=== PATIENT | male | born 1980 | race Caucasian/White ===

== ENCOUNTER 2017-11-22 03:56 | Emergency (ER) | payer OTHER ==
[~2017-11-22] VITALS: Ht 182.9 cm; Wt 120.0 kg
[~2017-11-22 03:56] MED LIST: ALPR1 PO; B COTAB3 PO; CLA; FLAXOIL2; LISI10 PO; LORTA5 PO; SERT100 PO; TAB-TAB PO; VITA100017 PO
[2017-11-22 04:05] VITALS: BP 129/71; PULSE 102; RESP 14; TEMP 98.4; O2SAT 96
[2017-11-22] MEDS ORDERED: TETANUS/DIPHTHERIA TOXOID ADULT 0.5 ML VIAL IM ONE (04:15)
[2017-11-22] MEDS ORDERED: ONDANSETRON HCL 4 MG/2 ML VIAL IV PUSH ONE (04:15)
[2017-11-22] MEDS ORDERED: SODIUM CHLOR 0.9% 1000 ML INJ 1,000 ML IV ONE (04:15)
[2017-11-22] MEDS ORDERED: LISI10TA3 PO (04:21)
--- NOTE | 2017-11-22 04:25 | PD ---
HPI Chief Complaint: Alcohol/Drug Intoxication Time Seen by Provider: 04:03 Travel History International Travel<30 days: No Contact w/Intl Traveler<30days: No Traveled to known affect area: No History of Present Illness HPI The patient is a 37-year-old male who presents to the emergency department via EMS for alcohol intoxication and head injury. According to EMS the patient was out with friends earlier tonight, drinking alcohol, when he apparently fell backwards striking his head. EMS states that were bystanders on scene and stated the patient did not lose consciousness. However, EMS states in route to the hospital the patient started vomiting. They noted his initial GCS was 14. Upon arrival the patient was actively vomiting, was somewhat lethargic but arousable. Patient does complain of mild headache and nausea with vomiting, denies any chest pain, neck pain, shortness breath, or abdominal pain. Symptoms are moderate. PFSH Past Medical History Arthritis: No Asthma: No Autoimmune Disease: No Blood Disorders: No Anxiety: No Depression: No Heart Rhythm Problems: No Cancer: No Cardiovascular Problems: No High Cholesterol: No Chemotherapy: No Chest Pain: No Congestive Heart Failure: No COPD: No Cerebrovascular Accident: No Diabetes: No Diminished Hearing: No Endocrine: No Gastrointestinal Disorders: Yes GERD: No Glaucoma: No Genitourinary: Yes Headaches: No Hepatitis: No Hiatal Hernia: No Hypertension: Yes Immune Disorder: No Kidney Stones: Yes (possible kidney stones while in highschool) Musculoskeletal: Yes (malignant hyperthermia) Neurologic: No Psychiatric: No Reproductive: No Respiratory: No Migraines: No Myocardial Infarction: No Radiation Therapy: No Renal Failure: No Seizures: No Sickle Cell Disease: No Sleep Apnea: No Thyroid Disease: No Ulcer: No Tetanus Vaccination: Unknown Past Surgical History Abdominal Surgery: No AICD: No Appendectomy: No Arteriovenous Shunt: No Cardiac Surgery: No Cholecystectomy: No Ear Surgery: No Endocrine Surgery: No Eye Surgery: No Genitourinary Surgery: Yes (cystoscopy while in highschool) Insulin Pump: No Joint Replacement: No Neurologic Surgery: No Oral Surgery: No Pacemaker: No Thoracic Surgery: No Other Surgery: Yes (MUSCLE BIOPSY ) Social History Alcohol Use: Yes (12 pack a week) Tobacco Use: No Substance Use: No Allergies-Medications (Allergen,Severity, Reaction): Coded Allergies: Sulfa (Sulfonamide Antibiotics) (Unverified Allergy, Severe, UNKNOWN, 11/22) cefaclor (Unverified Allergy, Severe, UNKNOWN, 11/22/17) desflurane (Unverified Allergy, Severe, 11/22/17) FATHER HAD AN EPISODE OF MALIGNANT HYPERTHERMIA, PT TEST INCONCLUSIVE etomidate (Unverified Allergy, Severe, 11/22/17) FATHER HAD AN EPISODE OF MALIGNANT HYPERTHERMIA, PT TEST INCONCLUSIVE isoflurane (Unverified Allergy, Severe, 11/22/17) FATHER HAD AN EPISODE OF MALIGNANT HYPERTHERMIA, PT TEST INCONCLUSIVE ketamine (Unverified Allergy, Severe, 11/22/17) FATHER HAD AN EPISODE OF MALIGNANT HYPERTHERMIA, PT TEST INCONCLUSIVE metaxalone (Unverified Allergy, Severe, UNKNOWN, 11/22/17) methohexital (Unverified Allergy, Severe, 11/22/17) FATHER HAD AN EPISODE OF MALIGNANT HYPERTHERMIA, PT TEST INCONCLUSIVE nitrous oxide (Unverified Allergy, Severe, 11/22/17) FATHER HAD AN EPISODE OF MALIGNANT HYPERTHERMIA, PT TEST INCONCLUSIVE propofol (Unverified Allergy, Severe, 11/22/17) FATHER HAD AN EPISODE OF MALIGNANT HYPERTHERMIA, PT TEST INCONCLUSIVE sevoflurane (Unverified Allergy, Severe, 11/22/17) FATHER HAD AN EPISODE OF MALIGNANT HYPERTHERMIA, PT TEST INCONCLUSIVE shellfish derived (Unverified Allergy, Severe, THROAT CLOSES, 11/22/17) succinylcholine (Unverified Allergy, Severe, MALIGNANT HYPERTHERMIA, ) sufentanil (Unverified Allergy, Severe, 11/22/17) FATHER HAD AN EPISODE OF MALIGNANT HYPERTHERMIA, PT TEST INCONCLUSIVE Reported Meds & Prescriptions Reported Meds & Active Scripts Active Reported Lisinopril 10 Mg Tab Unknown Dose PO DAILY Review of Systems Except as stated in HPI: all other systems reviewed are Neg HENT: Positive: Headaches, No: Neck Pain Cardiovascular: No: Chest Pain or Discomfort Respiratory: No: Shortness of Breath Gastrointestinal: Positive: Nausea, Vomiting, No: Abdominal Pain Musculoskeletal: No: Weakness Neurologic: No: Weakness Psychiatric: Positive: Substance Abuse (alcohol use tonight) Physical Exam Narrative GENERAL: 37-year-old male who appears his stated age and is initially evaluated with cervical collar in place. SKIN: 3 cm transverse laceration to the occipital area with skin avulsion noted. HEAD: 3 cm transverse laceration to the occipital area with skin avulsion. EYES: Pupils equal and round. 3 mm bilateral and reactive. ENT: No nasal bleeding or discharge. Breath smells of alcohol. NECK: Trachea midline. No JVD. Cervical collar in place. CARDIOVASCULAR: Regular rate and rhythm. No murmur appreciated. RESPIRATORY: No accessory muscle use. Clear to auscultation. Breath sounds equal bilaterally. GASTROINTESTINAL: Abdomen soft, non-tender, nondistended. No rebound tenderness. MUSCULOSKELETAL: No obvious deformities. No clubbing. No cyanosis. No edema. Back: No tenderness over the thoracic or lumbar vertebrae. NEUROLOGICAL: Awake, lethargic but arousable. Moves all 4 extremities. Oriented to person. PSYCHIATRIC: Appears intoxicated. Data Data Last Documented VS Vital Signs Date Time Temp Pulse Resp B/P (MAP) Pulse Ox O2 Delivery O2 Flow Rate FiO2 11/22/17 04:05 98.4 102 14 129/71 (90) [address] Brain W/O Iv Contrast(Rout) (11/22/17 ) Ct Cerv Spine W/O Contrast (11/22/17 ) Basic Metabolic Panel (Bmp) (11/22/17 04:03) Alcohol (Ethanol) (11/22/17 04:03) Tetanus/Diphtheria Tox Adult (Tetanus/Di (11/22/17 04:15) Ondansetron Inj (Zofran Inj) (11/22/17 04:15) Sodium Chlor 0.9% 1000 Ml Inj (Ns 1000 M (11/22/17 04:15) Labs Laboratory Tests Test 11/22/17 04:10 Blood Urea Nitrogen 11 MG/DL Creatinine 1.02 MG/DL Random Glucose 131 MG/DL Calcium Level 8.4 MG/DL Sodium Level 139 MEQ/L Potassium Level 3.7 MEQ/L Chloride Level 104 MEQ/L Carbon Dioxide Level 24.1 MEQ/L Anion Gap 11 MEQ/L Estimat Glomerular Filtration Rate 83 ML/MIN Ethyl Alcohol Level 275 MG/DL [facility] Medical Decision Making Medical Screen Exam Complete: Yes Emergency Medical Condition: Yes Medical Record Reviewed: Yes Interpretation(s) CT of the brain reveals negative noncontrast head CT CT of the cervical spine is negative Laboratory Tests Test 11/22/17 04:10 Blood Urea Nitrogen 11 MG/DL Creatinine 1.02 MG/DL Random Glucose 131 MG/DL Calcium Level 8.4 MG/DL Sodium Level 139 MEQ/L Potassium Level 3.7 MEQ/L Chloride Level 104 MEQ/L Carbon Dioxide Level 24.1 MEQ/L Anion Gap 11 MEQ/L Estimat Glomerular Filtration Rate 83 ML/MIN Ethyl Alcohol Level 275 MG/DL Differential Diagnosis Differential diagnosis includes closed head injury, intracranial hemorrhage, subarachnoid hemorrhage, skull fracture, concussion, alcoholic gastritis, alcohol intoxication, hyponatremia, laceration, contusion, abrasion. Narrative Course IV was established, labs are drawn and sent, and the patient was placed on cardiac telemetry monitoring and continuous pulse oximetry monitoring. CT of the brain and cervical spine were obtained. The patient was administered Zofran and 1 L normal saline bolus. Tetanus shot was updated. Sodium level is normal 139. Alcohol level is elevated at 275. CT the brain and cervical spine are negative. The patient's laceration was repaired by the mid-level provider, please refer to the procedure note. The patient will be monitored in the emergency department until he is awake, alert, and able to ambulate. He will then be discharged home with a safe ride and disposition home. Diagnosis Primary Impression: Closed head injury Qualified Codes: S09.90XA - Unspecified injury of head, initial encounter Additional Impressions: Alcohol intoxication Qualified Codes: F10.929 - Alcohol use, unspecified with intoxication, unspecified Scalp laceration Qualified Codes: S01.01XA - Laceration without foreign body of scalp, initial encounter Patient Instructions: General Instructions Additional Instructions: Wound care instructions. [place] removed in 7 days. Polysporin twice a day. Decrease alcohol intake. Please provide the patient a copy of his blood work and CT results at discharge. Return if symptoms worsen or progress. Med/Other Pt SpecificInfo: No Change to Meds Disposition: 01 DISCHARGE HOME Condition: Stable Everardo Quintero MD Nov 22, 2017 04:25
--- NOTE | 2017-11-22 04:45 | RADRPT ---
EXAM DATE/TIME: 11/22/2017 04:30 [facility] COMPARISON: No previous studies available for comparison. INDICATIONS : Trauma; fall. RADIATION DOSE: 49.07 CTDIvol (mGy) MEDICAL HISTORY : None SURGICAL HISTORY : None. ENCOUNTER: Initial ACUITY: 1 day PAIN SCALE: Non-responsive LOCATION: cranial TECHNIQUE: Multiple contiguous axial images were obtained of the head. Using automated exposure control and adj ustment of the mA and/or kV according to patient size, radiation dose was kept as low as reasonably a chievable to obtain optimal diagnostic quality images. DICOM format image data is available electro nically for review and comparison. FINDINGS: CEREBRUM: The ventricles are normal for age. No evidence of midline shift, mass lesion, hemorrhage or acute in farction. No extra-axial fluid collections are seen. POSTERIOR FOSSA: The cerebellum and brainstem are intact. The 4th ventricle is midline. The cerebellopontine angle i s unremarkable. EXTRACRANIAL: The visualized portion of the orbits is intact. Mucosal thickening is noted in the ethmoidal air cell s. SKULL: The calvaria is intact. No evidence of skull fracture. CONCLUSION: Negative noncontrast head CT. Jamar White MD on November 22, 2017 at 4:41 Board Certified Radiologist. This report was verified electronically.
--- NOTE | 2017-11-22 04:58 | RADRPT ---
EXAM DATE/TIME: 11/22/2017 04:30 [facility] COMPARISON: No previous studies available for comparison. INDICATIONS : Trauma; fall. RADIATION DOSE: 45.68 CTDIvol (mGy) ; Patient body habitus MEDICAL HISTORY : None SURGICAL HISTORY : None. ENCOUNTER: Initial ACUITY: 1 day PAIN SCALE: Non-responsive LOCATION: neck TECHNIQUE: Volumetric scanning of the cervical spine was performed. Multiplanar reconstructions i n the sagittal, coronal and oblique axial planes were performed. Using automated exposure control a nd adjustment of the mA and/or kV according to patient size, radiation dose was kept as low as reason ably achievable to obtain optimal diagnostic quality images. DICOM format image data is available e lectronically for review and comparison. FINDINGS: The sagittal reconstructions demonstrate normal alignment and normal prevertebral soft tissues. The d ens is intact and there is a normal atlantoaxial relationship. The axial images demonstrate that the vertebral bodies and posterior elements are intact. The soft ti ssues are within normal limits. There is no evidence of acute fracture or malalignment. CONCLUSION: Negative trauma CT. Jamar White MD on November 22, 2017 at 4:52 Board Certified Radiologist. This report was verified electronically.
[2017-11-22 04:59] LABS: BICARBONATE 24.1 MEQ/L (21.0-32.0); CALCIUM 8.4 MG/DL (8.5-10.1); CREATININE 1.02 MG/DL (0.60-1.30)
[2017-11-22 06:00] VITALS: BP 106/59; PULSE 102; RESP 18; O2SAT 99
[2017-11-22] MEDS ORDERED: LIDOCAINE 1%/EPINEPHrine 1:100,000 SOLN 20 ML VIAL INFIL ONE (07:15)
--- NOTE | 2017-11-22 07:20 | PD ---
Physical Exam Date Seen by Provider: Nov 22, 2017 Time Seen by Provider: 07:17 Narrative 37-year-old male previously seen by Dr. Quintero, has a laceration to the posterior scalp requiring closure. I was asked to close it. Please see procedure note. Data Data Last Documented VS Vital Signs Date Time Temp Pulse Resp B/P (MAP) Pulse Ox O2 Delivery O2 Flow Rate FiO2 11/22/17 06:00 102 18 106/59 (75) 99 Nasal Cannula 2.00 11/22/17 04:[address] Brain W/O Iv Contrast(Rout) (11/22/17 ) Ct Cerv Spine W/O Contrast (11/22/17 ) Basic Metabolic Panel (Bmp) (11/22/17 04:03) Alcohol (Ethanol) (11/22/17 04:03) Tetanus/Diphtheria Tox Adult (Tetanus/Di (11/22/17 04:15) Ondansetron Inj (Zofran Inj) (11/22/17 04:15) Sodium Chlor 0.9% 1000 Ml Inj (Ns 1000 M (11/22/17 04:15) Ed Discharge Order (11/22/17 05:57) Lidocai-Epi 1%-1:100,000 Inj (Xylocaine- (11/22/17 07:15) Labs Laboratory Tests Test 11/22/17 04:10 Blood Urea Nitrogen 11 MG/DL Creatinine 1.02 MG/DL Random Glucose 131 MG/DL Calcium Level 8.4 MG/DL Sodium Level 139 MEQ/L Potassium Level 3.7 MEQ/L Chloride Level 104 MEQ/L Carbon Dioxide Level 24.1 MEQ/L Anion Gap 11 MEQ/L Estimat Glomerular Filtration Rate 83 ML/MIN Ethyl Alcohol Level 275 MG/DL [facility] Medical Record Reviewed: Yes Supervised Visit with CHRIS: Yes Procedures Procedure Narrative LACERATION LOCATION: Upper posterior scalp LENGTH: 3 cm NUMBER OF STITCHES/GILL: 9 gill REPAIR: The area of the laceration was prepped with Betadine and sterilely draped. The laceration was infiltrated with 3 mL's 1% lidocaine with epi.. The wound was copiously irrigated and explored without evidence of foreign body , tendon injury or neurovascular injury. The wound was closed using gill. This was a single layer repair. The patient was advised to keep the wound clean and dry. Patient tolerated the procedure well. [place] should be removed within a week. Diagnosis Primary Impression: Closed head injury Qualified Codes: S09.90XA - Unspecified injury of head, initial encounter Additional Impressions: Alcohol intoxication Qualified Codes: F10.929 - Alcohol use, unspecified with intoxication, unspecified Scalp laceration Qualified Codes: S01.01XA - Laceration without foreign body of scalp, initial encounter Patient Instructions: General Instructions Departure Forms: Tests/Procedures Additional Instruction: Wound care instructions. [place] removed in 7 days. Polysporin twice a day. Decrease alcohol intake. Please provide the patient a copy of his blood work and CT results at discharge. Return if symptoms worsen or progress. Disposition: 01 DISCHARGE HOME Condition: Stable Alireza Mills Nov 22, 2017 07:20
== END 2017-11-22 08:33 | disposition home or self-care (01) ==
LOC: NEPE 03:56
DX: S01.01XA Laceration without foreign body of scalp, initial encounter (principal); W19.XXXA Unspecified fall, initial encounter; F10.129 Alcohol abuse with intoxication, unspecified; Y90.8 Blood alcohol level of 240 mg/100 ml or more; I10 Essential (primary) hypertension; Z23 Encounter for immunization
CPT/HCPCS: 12002; 70450; 72125; 80048; 80307; 90471; 90714; 96374; 99284; J2405; J7030